=== PATIENT | male | born 1935 ===

== ENCOUNTER 2020-08-25 09:01 | Day surgery (SDC) | payer MEDICARE, BC ==
[~2020-08-25] VITALS: Ht 167.6 cm; Wt 71.2 kg
[2020-08-25] MEDS ORDERED: COLC0.6T37 PO (09:50)
[2020-08-25] MEDS ORDERED: BRIM5DRO2 EACHEYE (09:50)
[2020-08-25] MEDS ORDERED: TERA1CAP3 PO (09:50)
[2020-08-25] MEDS ORDERED: METO25TA91 PO (09:50)
[2020-08-25] MEDS ORDERED: RIVA15TA PO (09:50)
[2020-08-25] MEDS ORDERED: ZOLP10TA PO (09:50)
[2020-08-25] MEDS ORDERED: CHOL4PAC11 PO (09:50)
[2020-08-25 09:51] VITALS: BP 178/91
[2020-08-25] MEDS ORDERED: LIDOCAINE-MPF 1%, 2ML INFIL ONE (10:00)
[2020-08-25] MEDS ORDERED: LACTATED RINGERS 1,000 ML IV SCH (10:00)
[2020-08-25] MEDS ORDERED: PLEASE ENTER HEIGHT AND WEIGHT MC SCH (10:00)
[2020-08-25] MEDS ORDERED: CHLORHEXIDINE 15 ML UDC PO ONE (10:00)
[2020-08-25] MEDS ORDERED: BACITRACIN OINT 500U/GM, 15 GM ONE (10:54)
[2020-08-25] MEDS ORDERED: LIDOCAINE 1%, 20ML ONE (10:54)
[2020-08-25] MEDS ORDERED: EPINEPHRINE 1 MG/ML, 1ML ONE (10:54)
[2020-08-25] MEDS ORDERED: OXYMETAZOLINE NASAL SPRAY 0.05%,30ML ONE (11:22)
[2020-08-25] MEDS ORDERED: FENTANYL PF 100 MCG/2ML ONE (11:25)
[2020-08-25] MEDS ORDERED: MIDAZOLAM 1 MG/ML, 2ML ONE (11:26)
[2020-08-25] MEDS ORDERED: CEFAZOLIN 1,000 MG ONE (11:29)
[2020-08-25] MEDS ORDERED: GLYCOPYRROLATE 0.2MG/1ML, 5ML ONE (11:29)
[2020-08-25] MEDS ORDERED: ONDANSETRON 2MG/ML, 2ML IVPush PRN (13:00)
[2020-08-25] MEDS ORDERED: HYDROmorphone 1 MG/ML, 1ML INJ IVPush PRN (13:00)
[2020-08-25] MEDS ORDERED: OXYcodone 5 MG/5 ML ORAL.SOL UDC PO PRN (13:00)
[2020-08-25] MEDS ORDERED: LABETALOL 5MG/ML, 20ML IV PRN (13:00)
[2020-08-25] MEDS ORDERED: hydrALAzine 20 MG/ML, 1ML IV PRN (13:00)
[2020-08-25] MEDS ORDERED: FENTANYL PF 100 MCG/2ML IV PRN (13:00)
== END 2020-08-25 14:30 | disposition home or self-care (01) ==
LOC: OUT 09:01
PROVIDERS: ATTEND Specialist
DX: C30.0 Malignant neoplasm of nasal cavity (principal); G47.33 Obstructive sleep apnea (adult) (pediatric); I48.91 Unspecified atrial fibrillation; I12.9 Hypertensive chronic kidney disease with stage 1 through stage 4 chronic kidney disease, or unspecified chronic kidney disease; E11.22 Type 2 diabetes mellitus with diabetic chronic kidney disease; N18.32 Chronic kidney disease, stage 3b; J43.1 Panlobular emphysema; E78.5 Hyperlipidemia, unspecified; I69.398 Other sequelae of cerebral infarction; F17.210 Nicotine dependence, cigarettes, uncomplicated; Z79.01 Long term (current) use of anticoagulants; Z72.89 Other problems related to lifestyle; Z79.899 Other long term (current) drug therapy; Z98.890 Other specified postprocedural states; Z20.822 Contact with and (suspected) exposure to COVID-19
CPT/HCPCS: 14060; 82962; 87635; 88305; 88331; J0171; J0690; J2250; J3010; J7120